=== PATIENT | female | born 1950 ===

== ENCOUNTER 2021-09-15 09:45 | Inpatient (IN) | payer OTHER ==
[~2021-09-15] VITALS: Ht 157.5 cm; Wt 74.4 kg
[2021-09-15] MEDS ORDERED: SYNTHROID100 MCG PO (11:57)
== END 2021-09-19 12:22 | disposition home or self-care (01) | DRG 741 ==
LOC: O/R 09-17 06:44 → OB/GYN 09-17 09:45
PROVIDERS: ADMIT Specialist; ATTEND Specialist
PROC: 0UT70ZZ Resection of Bilateral Fallopian Tubes, Open Approach (ICD-10-PCS; 2021-09-17)
PROC: 0UT20ZZ Resection of Bilateral Ovaries, Open Approach (ICD-10-PCS; 2021-09-17)
PROC: 07BC0ZZ Excision of Pelvis Lymphatic, Open Approach (ICD-10-PCS; 2021-09-17)
PROC: 0DBU0ZZ Excision of Omentum, Open Approach (ICD-10-PCS; 2021-09-17)
PROC: 3E1M38Z Irrigation of Peritoneal Cavity using Irrigating Substance, Percutaneous Approach (ICD-10-PCS; 2021-09-17)
PROC: 0UT90ZZ Resection of Uterus, Open Approach (ICD-10-PCS; principal; 2021-09-17 14:15)
DX: C54.1 Malignant neoplasm of endometrium (principal); Z20.822 Contact with and (suspected) exposure to COVID-19; N83.291 Other ovarian cyst, right side; N83.292 Other ovarian cyst, left side